=== PATIENT | female | born 1985 | race Caucasian/White ===

== ENCOUNTER 2018-11-08 08:43 | Outpatient (CLI) | payer OTHER | END 2018-11-08 10:15 | disposition home or self-care (01) | LOC: LAB 08:43 | DX: Z34.81 Encounter for supervision of other normal pregnancy, first trimester (principal); Z11.4 Encounter for screening for human immunodeficiency virus [HIV] ==

== ENCOUNTER 2018-11-09 16:47 | Outpatient (CLI) | payer OTHER | END 2018-11-09 16:55 | disposition home or self-care (01) | LOC: LAB 16:47 | DX: Z34.81 Encounter for supervision of other normal pregnancy, first trimester (principal); Z11.4 Encounter for screening for human immunodeficiency virus [HIV] ==

== ENCOUNTER 2019-06-13 14:07 | Inpatient (IN) | payer OTHER ==
[~2019-06-13] VITALS: Ht 154.9 cm; Wt 75.7 kg
== END 2019-07-02 17:30 | disposition home or self-care (01) | DRG 807 ==
LOC: OB/GYN 06-25 13:29 → LDR 06-30 10:19 → SURG-SUITE 06-30 13:42
PROVIDERS: ADMIT Obstetrics & Gynecology
PROC: 10E0XZZ Delivery of Products of Conception, External Approach (ICD-10-PCS; principal; 2019-06-30)
PROC: 0KQM0ZZ Repair Perineum Muscle, Open Approach (ICD-10-PCS; 2019-06-30)
PROC: 4A1HXCZ Monitoring of Products of Conception, Cardiac Rate, External Approach (ICD-10-PCS; 2019-06-30)
DX: O70.1 Second degree perineal laceration during delivery (principal); Z37.0 Single live birth; Z3A.40 40 weeks gestation of pregnancy

== ENCOUNTER 2019-06-20 10:25 | Outpatient (CLI) | payer OTHER | END 2019-06-20 15:39 | disposition home or self-care (01) | LOC: LAB → NST 10:25 | DX: Z34.83 Encounter for supervision of other normal pregnancy, third trimester (principal) ==

== ENCOUNTER 2019-06-26 11:36 | Outpatient (CLI) | payer OTHER | END 2019-06-26 12:00 | disposition home or self-care (01) | LOC: NST 11:36 | DX: Z34.83 Encounter for supervision of other normal pregnancy, third trimester (principal) ==